=== PATIENT | male | born 1990 | race Caucasian/White ===

== ENCOUNTER 2024-09-09 14:40 | Emergency (ER) | payer BC, SELFPAY ==
[2024-09-09 14:46] VITALS: BP 184/111
[2024-09-09 15:05] LABS: Urine Albumin 2+ (Neg - Trace); Urine Bilirubin 1+ (Negative); Urine Character Slightly Cloudy (Clear); Urine Color Yellow; Urine Glucose Negative (Negative); Urine Ketone 1+ (Negative); Urine Leukocyte 1+ (Negative); Urine Nitrite Negative (Negative); Urine Occult Blood Negative (Negative); Urine Specific Gravity 1.025 (<1.030); Urine Urobilinogen 1+ (Neg - 1+)
[2024-09-09 15:13] LABS: Urine Mucus Many
[2024-09-09 15:14] LABS: Urine Bacteria Few (Negative); Urine Red Blood Cell 0-2 /HPF (0-2)
--- NOTE | 2024-09-09 15:42 | ED.GENMED ---
History of Present Illness
General
Chief Complaint: Male Genito-Urinary Symptoms
Source: patient
Exam Limitations: none
Time Seen by Provider: 09/09/24 15:21
Nursing documentation reviewed up to this point in time: agreed with
History of Present Illness
History of Present Illness:
33 yo male with hx HTN, HLD, obesity, left testicular torsion age 10, presents with right testicular aching pain since 8 a.m. while getting ready for work. Denies fever, no pain or difficulty urinating, no abdominal pain.
Past History
Past History
ED Past Medical History: Other (testicular torsion)
ED Past Surgical History: Orthopedic (Hardware in left lower leg, skin graft left lower leg) and Urological (left orchiectomy 2000)
Social History
Tobacco: Non-smoker
Alcohol: Occasional
Personal: Single
Living: with family
Employment: Employed
Review of Systems
Review of Systems
Allergies reviewed?: Yes
All Other Systems: ROS reviewed and negative except as documented in HPI and ROS
Constitutional: Denies fever
ABD/GI: Denies abdominal pain
: Reports other (discomfort right testicle); Denies dysuria, difficulty voiding or discharge
Skin: Reports no symptoms
Phy Exam
Physical Exam
Physical Exam:
GENERAL: No acute distress. A&Ox3.
CONSTITUTIONAL: Afebrile.
RESPIRATORY: Regular respirations, nonlabored, lungs clear.
CARDIOVASCULAR: Regular rate and rhythm, no murmurs, no rubs.
GI: Soft, nontender, normal BS
: Minimal tenderness right testicle laterally. No palpable masses, no swelling or discoloration.
MUSCULOSKELETAL: Moves with ease. Well perfused.
SKIN: Warm, dry, pink
PSYCH: Normal mood and affect. Well kept, interactive and appropriate
NEUROLOGIC: Awake, alert and oriented. No focal neurological deficits
Course
Orders/Labs/Results
Orders:
Orders
09/09/24 14:48
US Scrotum Urgent
Comment:
Reason For Exam: R testicular pain
09/09/24 14:52
Urinalysis Reflex To Culture Urgent
Date Specimen was Collected: 09/09/24
Time Specimen was Collected: 14:51
Urine Microscopic Reflex Cult Urgent
Urine Culture Urgent
GEOFFREY Source: U
Specimen Description:
Date Specimen was Collected: 09/09/24
Time Specimen was Collected: 14:51
Abnormal Lab Results
09/09/24
14:52
Urine Ketones 1+ A
(Negative)
Urine Bilirubin 1+ A
(Negative)
Leukocyte Esterase Rfl 1+ A
(Negative)
Urine Bacteria (Reflex) Few A
(Negative)
Urine Albumin (Reflex) 2+ A
(Neg - Trace)
Vital Signs
Initial and Last Documented VS:
Initial Vital Signs
Temp Pulse Resp BP Pulse Ox
98.3 F 102 16 184/111 99
09/09/24 14:46 09/09/24 14:46 09/09/24 14:46 09/09/24 14:46 09/09/24 14:46
Last Documented Vital Signs
Temp Pulse Resp BP Pulse Ox
98.3 F 102 16 132/89 99
09/09/24 14:46 09/09/24 14:46 09/09/24 14:46 09/09/24 18:05 09/09/24 14:46
MDM/Problems Addressed
Differential Diagnosis Includes:
Torsion, hydrocele, varicocele, epididymitis, UTI
MDM/Problems Addressed:
33 yo male with hx HTN, HLD, obesity, left testicular torsion age 10, presents with right testicular aching pain since 8 a.m. while getting ready for work. Denies fever, no pain or difficulty urinating, no abdominal pain.
UA shows no sign of infection
Scrotum US radiology report read:
Normal appearance of the right testes 4 mm simple cyst within the right epididymal head no other abnormality of right epididymis. No evidence for hydrocele or varicocele. History of left orchiectomy
Patient provided copy of report
BP recheck 132/89
stable for discharge
*Critical Care Note
Total Time (30-74mins, 75-104mins- exclusive of procedures): Not Applicable
ED Attending Note
-
Portions of this chart may have been created with voice recognition software.� Occasional wrong word or��sound alike� substitutions may have occurred due to the inherent limitations of voice recognition software.
Discharge Plan
Departure
Patient Disposition: Home (Routine Discharge)
Date of Disposition: 09/09/24
Time of Disposition: 18:00
Patient with high blood pressure during this ER visit?: No
Condition: Good
Discharge Problem:
Pain in right testicle
Instructions: How to Perform a Testicular Self-Exam
Prescriptions:
No Action
levocetirizine [Xyzal] 5 mg Tablet
5 mg PO DAILY PRN (Reason: SEASONAL ALLERGIES)
Centrum Men 8 mg iron- 200 mcg-600 mcg Tablet
1 tab PO DAILY
losartan 100 mg tablet
100 mg PO DAILY Qty: 30 0RF
folic acid 1 mg Tablet
1 mg PO DAILY Qty: 0 0RF
thiamine HCl (vitamin B1) 100 mg Tablet
100 mg PO BID Qty: 0 0RF
amlodipine [Norvasc] 10 mg tablet
10 mg PO DAILY Qty: 30 0RF
metformin 500 mg tablet
500 mg PO BID Qty: 60 0RF
Referrals:
Evelyn Morales MD [Family Provider] - As needed
UNKNOWN - PT NOT,INTERVIEWE [Unknown Provider] -
Activity Restrictions/Additional Instructions:
As we discussed, nothing worrisome on your ultrasound.
Interventions
Interventions:
*Risk Screen - Suicide Last Done: 09/09/24 15:52
*General Assessment Last Done: 09/09/24 15:52
*Neglect/Abuse Screening Last Done: 09/09/24 15:52
*ED- Fall Risk Assessment Last Done: 09/09/24 15:52
*ED COVID-19 Vaccine History Last Done: 09/09/24 15:52
*Nursing Disposition Last Done: 09/09/24 18:10
ED-Male Genitourinary Assessment Last Done: 09/09/24 15:52
Discharge Date and Time
Discharge Date/Time: 09/09/24 18:11
Print Language: CITIZEN OF [place]
[2024-09-09 15:52] VITALS: BMI 33.7
[2024-09-09 18:05] VITALS: BP 132/89
== END 2024-09-09 18:11 | disposition home or self-care (01) ==
LOC: EMR 14:40
PROVIDERS: EMERGENCY PHYSICIAN Emergency Medicine; FAMILY PHYSICIAN Emergency Medicine
DX: N50.811 Right testicular pain (principal); E78.5 Hyperlipidemia, unspecified; I10 Essential (primary) hypertension
CPT/HCPCS: 99284; 76870; 81003; 81015; 87086; 93976

== ENCOUNTER 2025-03-25 18:00 | Emergency (ER) | payer OTHER, SELFPAY ==
[2025-03-25 18:06] VITALS: BP 176/114
[2025-03-25 18:34] LABS: Hematocrit 40.1 % (39.0-52.0); Hemoglobin 14.0 g/dL (13.0-18.0); Mean Corp Hgb Conc. 34.9 g/dL (33.0-37.0); Mean Corpuscular Volume 86.8 fL (80.0-94.0); Nucleated Red Blood Cells % 0 % (-); Platelet Count 252 10^3/uL (130-400); Red Cell Dist. Width 12.3 % (11.5-14.5)
[2025-03-25 18:57] LABS: ALT (SGPT) 38 U/L (0-50); AST (SGOT) 28 U/L (17-59); Albumin 5.2 g/dl (3.5-5.0); Alkaline Phosphatase 101 U/L (38-126); Blood Urea Nitrogen 17 mg/dl (9-20); Calcium 9.8 mg/dl (8.4-10.2); Carbon Dioxide 24 mmol/L (22-30); Chloride 103 mmol/L (98-107); Glucose 103 mg/dl (70-99); Potassium 4.1 mmol/L (3.5-5.1); Sodium 137 mmol/L (135-145); Total Protein 7.8 g/dl (6.3-8.2); eGFR > 60.00
[2025-03-25 19:08] LABS: Troponin I < 0.012 ng/ml
--- NOTE | 2025-03-25 20:08 | ED.GENMED ---
History of Present Illness
General
Chief Complaint: Heart Rate Problem
Source: patient
Exam Limitations: none
Time Seen by Provider: 03/25/25 19:58
Nursing documentation reviewed up to this point in time: agreed with
History of Present Illness
History of Present Illness:
34-year-old male with history of hypertension, diabetes presents to the emergency department for evaluation of palpitations. Patient reports onset of symptoms just prior to arrival while he was watching a movie with a friend. He says that he took
one of his friend's anxiety medications and symptoms seem to improve but when he is driving home still had some racing heart which prompted him to come to the ER for evaluation. He says that his symptoms have resolved at present. He says that he
had some transient very mild chest discomfort that he attributes more to anxiety. Denies any shortness of breath. He was in his normal state of health prior to onset. He says he has had similar episodes at work previously which he attributed to
anxiety/panic but never during recreation which made him more concerned tonight.
Past History
Past History
ED Past Medical History: Other (testicular torsion)
ED Past Surgical History: Orthopedic (Hardware in left lower leg, skin graft left lower leg) and Urological (left orchiectomy 1999)
Social History
Tobacco: Non-smoker
Alcohol: Occasional
Personal: Single
Living: with family
Employment: Employed
Review of Systems
Review of Systems
All Other Systems: ROS reviewed and negative except as documented in HPI and ROS
Constitutional: Denies fever
Respiratory: Denies cough or trouble breathing
Cardiac: Reports chest pain and palpitations; Denies syncope
ABD/GI: Denies abdominal pain
Neurological: Reports dizzy; Denies headache
Phy Exam
Physical Exam
Physical Exam:
General: Awake, alert, oriented x3; no acute distress
Head: Normocephalic, atraumatic
Eyes: Conjunctiva normal, sclera anicteric
Throat: Airway intact, handling secretions
Neck: Trachea midline, supple without meningismus
Lungs: Clear to auscultation bilaterally, no wheezing, rales, rhonchi
Heart: Regular rate and rhythm, no murmurs, gallops, or rubs
Neuro: Grossly intact, ambulatory
Skin: Warm and dry
Extremities: Warm and well-perfused
Scores
Heart Failure Risk
Heart Failure Risk Score: Not Applicable
Heart Score for Chest Pain Patients
STEMI patient?: Not applicable
Withdrawal Assessment of Alcohol
Withdrawal Assessment Completed?: Not applicable
Course
Orders/Labs/Results
Orders:
Orders
03/25/25 18:09
Electrocardiogram (*1) Urgent
Reason for Study: Tachycardia
03/25/25 18:10
EKG- Treatment ONCE
03/25/25 18:16
Complete Blood Count/With Diff Urgent
Comprehensive Metabolic Panel Urgent
Troponin I Urgent
Abnormal Lab Results
03/25/25
18:16
RBC 4.62 L 10^6/uL
(4.70-6.10)
Absolute Neuts (auto) 6.8 H 10^3/uL
(1.4-6.5)
Lymphocytes % 17.7 L %
(20.5-51.1)
Glucose 103 H mg/dl
(70-99)
Albumin 5.2 H g/dl
(3.5-5.0)
03/25/25 18:16
03/25/25 18:16
Vital Signs
Initial and Last Documented VS:
Initial Vital Signs
Temp Pulse Resp BP Pulse Ox
36.6 C 108 16 176/114 98
03/25/25 18:06 03/25/25 18:06 03/25/25 18:06 03/25/25 18:06 03/25/25 18:06
Last Documented Vital Signs
Temp Pulse Resp BP Pulse Ox
36.6 C 90 16 176/114 98
03/25/25 18:06 03/25/25 19:53 03/25/25 18:06 03/25/25 18:06 03/25/25 20:09
MDM/Problems Addressed
Differential Diagnosis Includes:
PVCs, PACs, atrial fibrillation/flutter/SVT, anxiety/panic; nothing by history or exam to suggest myocarditis, PE, or other emergent pathology
MDM/Problems Addressed:
34-year-old male presents for evaluation of palpitations/tachycardia started this afternoon and seems to have resolved. In triage patient was hypertensive and mildly tachycardic�heart rate is normalized by my assessment. Physical exam is as noted.
His EKG shows sinus rhythm with no ectopy, no delta wave, no Brugada, normal QTc. Labs in triage reviewed and no clinically significant abnormalities�troponin undetectable. Overall suspect this may have been anxiety/panic but given his report of
multiple episodes in the past I did advise him to follow-up with cardiology for further assessment and consideration of Holter monitor to completely rule out arrhythmia. I spoke to him in detail about return precautions including returning for EKG
if tachycardia returns. He indicated understanding and is comfortable with this plan. All questions answered.
*Pulse Oximetry
SaO2: 98
Oxygen Mode of Delivery: Room air
Patient hypoxic: no (98%)
*EKG
Interpreted by ED Provider?: Yes
Heart Rate: 95
Rate: normal
Rhythm: sinus
[place]: normal axis
Interval: normal interval
QRS Pattern: normal QRS
Ischemia: no ischemia
*Critical Care Note
Total Time (30-74mins, 75-104mins- exclusive of procedures): Not Applicable
Data Reviewed
Source: patient and records
ED Attending Note
-
Portions of this chart may have been created with voice recognition software.� Occasional wrong word or��sound alike� substitutions may have occurred due to the inherent limitations of voice recognition software.
Discharge Plan
Departure
Patient Disposition: Home (Routine Discharge)
Date of Disposition: 03/25/25
Time of Disposition: 20:12
Patient with high blood pressure during this ER visit?: Yes
Discharge Problem:
Heart palpitations
Instructions: Palpitations (DC)
Prescriptions:
No Action
levocetirizine [Xyzal] 5 mg Tablet
5 mg PO DAILY PRN (Reason: SEASONAL ALLERGIES)
Centrum Men 8 mg iron- 200 mcg-600 mcg Tablet
1 tab PO DAILY
losartan 100 mg tablet
100 mg PO DAILY Qty: 30 0RF
folic acid 1 mg Tablet
1 mg PO DAILY Qty: 0 0RF
thiamine HCl (vitamin B1) 100 mg Tablet
100 mg PO BID Qty: 0 0RF
amlodipine [Norvasc] 10 mg tablet
10 mg PO DAILY Qty: 30 0RF
metformin 500 mg tablet
500 mg PO BID Qty: 60 0RF
Referrals:
Tommy Winters MD [Active, Cardiology] - Call in 1-3 days for appt
Activity Restrictions/Additional Instructions:
Thank you for visiting the Emergency Department at [facility].
1. Please schedule a follow up appointment as directed. Call first thing tomorrow morning to make an appointment.
2. If indicated, please take your medications as instructed and indicated on discharge paperwork.
3. If any of your symptoms do not improve, or persist, or become more severe within 6-12 hours, please return to the emergency department for further care.
4. Please return to the emergency department if you develop a headache, neck pain/stiffness, fever greater than 100.4F, chest pain, shortness of breath, persistent nausea, vomiting, slurred speech, difficulty walking, numbness/tingling, weakness,
signs of infection or any other symptoms that are worrisome to you.
Please call [phone] if you have any questions.
Interventions
Interventions:
*Risk Screen - Suicide Last Done: 03/25/25 18:01
*Neglect/Abuse Screening Last Done: 03/25/25 19:54
*ED COVID-19 Vaccine History Last Done: 03/25/25 19:54
*ED Influenza Vaccine History Last Done: 03/25/25 19:54
Discharge Date and Time
Print Language: [place] CITIZEN
== END 2025-03-25 20:26 | disposition home or self-care (01) ==
LOC: EMR 18:00
PROVIDERS: Emergency Medicine; EMERGENCY PHYSICIAN Emergency Medicine; FAMILY PHYSICIAN Physician Assistant Medical
DX: R00.2 Palpitations (principal); R00.0 Tachycardia, unspecified; E11.9 Type 2 diabetes mellitus without complications; I10 Essential (primary) hypertension; Z79.84 Long term (current) use of oral hypoglycemic drugs
CPT/HCPCS: 99284; 80053; 84484; 85025; 93005